=== PATIENT | male | born 1980 | race Caucasian/White ===

== ENCOUNTER → 2017-08-28 | Outpatient (CLI) | payer OTHER ==
[~2017-08-28] VITALS: Ht 185.4 cm; Wt 136.0 kg
[2017-08-28] VITALS (13 sets, daily range): BP systolic 120–162; BP diastolic 70–93; PULSE 54–69
== END ==
LOC: COL.RAD 09:11
DX: K76.0 Fatty (change of) liver, not elsewhere classified (principal)